=== PATIENT | male | born 1950 | race Two or more races ===

== ENCOUNTER 2022-08-02 20:21 | Inpatient (IN) | payer OTHER ==
[~2022-08-02] VITALS: Ht 165.1 cm; Wt 78.0 kg
--- NOTE | 2022-08-02 20:29 | NUR ---
[id number] UPON ARIVEAL PT LETHARGIC PT A/OX1-2; FAROESE SPEAKING. TOLERATING R/A WELL WITH NO RESP DISTRES. SAFETY MEASURES IN PLACE. SEIZURE PRECAUTIONS IN PLACE.
--- NOTE | 2022-08-02 20:37 | NUR ---
RAC #18G S/L BLOOD COLLECTED AND SENT TO LAB
--- NOTE | 2022-08-02 20:47 | NUR ---
COVID ANTIGEN SWAB COLLECTED AND SENT TO LAB
--- NOTE | 2022-08-02 20:55 | NUR ---
PT TAKEN TO CT VIA [facility]
--- NOTE | 2022-08-02 21:00 | NUR ---
URINE COLLECTED AND ROBERT TO LAB
--- NOTE | 2022-08-02 21:18 | NUR ---
PT RETURNED TO ER BED [address]
--- NOTE | 2022-08-02 21:22 | NUR ---
CALLED [facility] TO FAX PT'S MED HX; AWAITING FAX
[2022-08-02 21:24] LABS: BASOPHILS % (AUTO) 0.2 % (0.0-2.0); EOSINOPHILS % (AUTO) 0.1 % (0.0-6.0); HEMATOCRIT 39 % (39-51); HEMOGLOBIN 13.3 g/dL (13.5-17.5); LYMPHOCYTES # (AUTO) 1.7 K/uL (0.8-4.8); LYMPHOCYTES % (AUTO) 16.5 % (20.0-44.0); MEAN CORPUSCULAR HGB CONC 34 g/dl (31.0-36.0); MEAN CORPUSCULAR VOLUME 83 fL (80-96); MONOCYTES # (AUTO) 0.4 K/uL (0.1-1.30); MONOCYTES % (AUTO) 3.5 % (2.0-12.0); NEUTROPHILS # (AUTO) 8.2 K/uL (1.8-8.9); NEUTROPHILS % (AUTO) 79.7 % (43.0-81.0); PLATELET COUNT (AUTO) 294 K/uL (150-450); RED BLOOD CELL COUNT(AUTO) 4.75 MIL/uL (4.5-6.0); WHITE BLOOD COUNT (AUTO) 10.3 K/uL (4.3-11.0)
[2022-08-02 21:48] LABS: ALANINE AMINOTRANSFERASE 33 U/L (12-78); ALBUMIN 3.5 g/dL (3.4-5.0); ALKALINE PHOSPHATASE 92 U/L (46-116); ASPARTATE AMINOTRANSFERASE 24 U/L (15-37); BILIRUBIN,DIRECT 0.1 mg/dL (0.0-0.2); BILIRUBIN,TOTAL 0.4 mg/dL (0.2-1.0); CALCIUM, SERUM 8.6 mg/dL (8.5-10.1); CARBON DIOXIDE 21 mmol/L (21-32); CHLORIDE 93 mmol/L (98-107); CREATININE 1.6 mg/dL (0.6-1.3); GLUCOSE 138 mg/dL (74-106); POTASSIUM 4.4 mmol/L (3.5-5.1); SODIUM SERUM 129 mmol/L (136-145); TOTAL PROTEIN, SERUM 7.5 g/dL (6.4-8.2); UREA NITROGEN, BLOOD 17 mg/dL (7-18)
--- NOTE | 2022-08-02 22:00 | NUR ---
CALLED [facility] AND SPOKE WITH IRIS TO DOLORES AMRCOS MD. PT ARRIVED AT THE FACILITY WITHOUT ANY PAPERWORK OR INFORMATION FOR THE FACILITY WHERE HE IS STAYING AT.
--- NOTE | 2022-08-02 22:03 | NUR ---
DR. ECKERT ON THE PHONE WITH DR. GÓMEZ.
[2022-08-02] MEDS ORDERED: LEVETIRACETAM (500MG) 500 MG/5 ML VIAL IV ONE (22:17)
--- NOTE | 2022-08-02 22:24 | NUR ---
PT TAKEN TO CT VIA [facility]
[2022-08-02] MEDS ORDERED: IV NS 0.9% 1,000 ML BAG IV ONE (22:30)
[2022-08-02] MEDS ORDERED: LEVETIRACETAM (500MG) 1,000 MG in IV NS 0.9% 100 ML IV SCH (22:30)
[2022-08-02] MEDS ORDERED: LORAZEPAM INJ 2 MG/ML VIAL IV PRN (23:00)
[2022-08-02] MEDS ORDERED: ONDANSETRON HCL/PF 4 MG/2 ML VIAL IVP PRN (23:00)
[2022-08-02] MEDS ORDERED: ACETAMINOPHEN 325 MG TABLET PO PRN (23:00)
--- NOTE | 2022-08-02 23:57 | NUR ---
PT GOING TO 306-1
--- NOTE | 2022-08-03 00:29 | NUR ---
REPORT GIVEN TO BOZENA Chawla RN FOR KRYSTIAN
[2022-08-03 01:30] VITALS: BP 144/74
--- NOTE | 2022-08-03 01:32 | NUR ---
TRANSFERRED PT TO 3W 306-1 VIA ACLS PROTOCOL. VSS. ALL BELONGINGS WITH PT
[2022-08-03] MEDS: IV NS 0.9% 1,000 ML IV PRN ×2 (01:59→17:39)
--- NOTE | 2022-08-03 02:00 | NUR ---
PREDATOR CONTROL TRAPPER NOTE RECEIVED PATIENT FROM ER VIA GURNEY. PATIENT IS AWAKE, ALERT AND ORIENTED X 1-2; AMBULATORY. LUXEMBOURGISH SPEAKING. ON ROOM AIR; TOLERATING WELL. BREATHING EVENLY AND NONLABORED. NOT IN ANY FORM OF RESPIRATORY DISTRESS. DENIES ANY PAIN OR DISCOMFORT AT THIS TIME. ON TELEMETRY MONITORING WHICH READS SINUS RHYTHM HR-65 BPM. WITH IV ACCESS ON RIGHT ANTECUBITAL 20G; INTACT AND PATENT RUNNING WITH NS REGULATED @ 75 ML/HR; FLUSHES WELL. NO INFILTRATION NOTED. SKIN ASSESSMENT DONE; INTACT. ORIENTED TO STAFF, ROOM AND UNIT. ON SEIZURE PRECAUTIONS. SAFETY MEASURES IMPLEMENTED: CALL LIGHT AND TABLE WITHIN REACH, SIDE RAILS UP X 2, BED IN LOWEST LOCKED POSITION. WILL CONTINUE TO MONITOR.
[2022-08-03 04:00] VITALS: BP 156/82
[2022-08-03 06:17] LABS: BASOPHILS % (AUTO) 0.1 % (0.0-2.0); EOSINOPHILS % (AUTO) 0.8 % (0.0-6.0); HEMATOCRIT 41 % (39-51); HEMOGLOBIN 13.6 g/dL (13.5-17.5); LYMPHOCYTES # (AUTO) 2.8 K/uL (0.8-4.8); LYMPHOCYTES % (AUTO) 27.7 % (20.0-44.0); MEAN CORPUSCULAR HGB CONC 33 g/dl (31.0-36.0); MEAN CORPUSCULAR VOLUME 82 fL (80-96); MONOCYTES # (AUTO) 0.6 K/uL (0.1-1.30); MONOCYTES % (AUTO) 5.9 % (2.0-12.0); NEUTROPHILS # (AUTO) 6.6 K/uL (1.8-8.9); NEUTROPHILS % (AUTO) 65.5 % (43.0-81.0); PLATELET COUNT (AUTO) 249 K/uL (150-450); RED BLOOD CELL COUNT(AUTO) 4.99 MIL/uL (4.5-6.0); WHITE BLOOD COUNT (AUTO) 10.1 K/uL (4.3-11.0)
[2022-08-03 06:52] LABS: CALCIUM, SERUM 8.4 mg/dL (8.5-10.1); CREATININE 1.1 mg/dL (0.6-1.3); MAGNESIUM 2.2 mg/dL (1.8-2.4); PHOSPHORUS 2.9 mg/dL (2.5-4.9); POTASSIUM 3.6 mmol/L (3.5-5.1)
--- NOTE | 2022-08-03 07:10 | NUR ---
RN CLOSING NOTE PATIENT IN BED; AWAKE, A/O X 1-2. STABLE ON ROOM AIR. BREATHING EVENLY AND UNLABORED. IN NO ACUTE DISTRESS. NO S/S OF ANY PAIN OR DISCOMFORT AT THIS TIME. ON TELEMETRY MONITORING: SR HR-68 BPM. IV SITE ON RIGHT ANTECUBITAL 20G; INTACT AND PATENT RUNNING WITH NS REGULATED @ 75 ML/HR; FLUSHING WELL. NO INFILTRATION NOTED. ON SEIZURE PRECAUTIONS. SAFETY MEASURES MAINTAINED: CALL LIGHT AND TABLE WITHIN REACH, SIDE RAILS UP X 2, BED IN LOWEST LOCKED POSITION. ENDORSED TO MORNING SHIFT FOR KRYSTIAN.
--- NOTE | 2022-08-03 07:18 | NUR ---
MEDICAL RESEARCH SCIENTIST OPENING NOTE PATIENT IN BED, PATIENT IS ALERT AND ORIENTED X 2-3. PATIENT ON ROOM AIR WITH EVENLY AND UNLABORED BREATHING. NO ACUTE DISTRESS NOTED. NO COMPLAIN OF ANY PAIN OR DISCOMFORT AT THIS TIME. ON TELEMETRY MONITORING READING SR 81 BPM. WITH IV SITE ON RIGHT ANTECUBITAL 20G WITH NS RUNNING AT 75ML/HR. ON SEIZURE PRECAUTION, NONE NOTED LAST NIGHT. SAFETY MEASURES MAINTAINED: CALL LIGHT AND TABLE WITHIN REACH, SIDE RAILS UP X 2, BED IN LOWEST LOCKED POSITION. IN STABLE CONDITION. HEALTH TEACHING DONE REGARDING SEIZURE PRECAUTIONS. VERBALIZED UNDERSTANDING AND APPRECIATION.
[2022-08-03 08:00] VITALS: BP 144/80
--- NOTE | 2022-08-03 08:45 | NUR ---
TUBE CLEANING OPERATOR NOTE SEEN BY DR. BROOKE. IN STABLE CONDITION.
[2022-08-03] MEDS ORDERED: LEVETIRACETAM (500MG) 500 MG in IV NS 0.9% 100 ML IV SCH (09:00)
--- NOTE | 2022-08-03 09:38 | NUR ---
THROW OUT CLERK NOTE SEEN BY DR. MART. IN STABLE CONDITION.
[2022-08-03] MEDS: ASPIRIN EC 81 MG TABLET.DR PO SCH (09:41)
[2022-08-03] MEDS: LEVETIRACETAM (500MG) 1,000 MG in IV NS 0.9% 100 ML IV SCH ×2 (09:50→20:28)
[2022-08-03] MEDS ORDERED: DEXTROSE 50%-WATER 50 ML DISP.SYRIN IV PRN (10:30)
[2022-08-03] MEDS ORDERED: OLOP2.5D12 EACHEYE (11:56)
[2022-08-03] MEDS ORDERED: LEVE500T9 PO (11:56)
[2022-08-03] MEDS ORDERED: AMLO2.5T4 PO (11:56)
[2022-08-03] MEDS ORDERED: COLC0.6C3 PO (11:56)
[2022-08-03] MEDS ORDERED: ASPI-1420 PO (11:56)
[2022-08-03] MEDS ORDERED: GABA-532 PO (11:56)
[2022-08-03] MEDS ORDERED: CLOP75TA15 PO (11:56)
[2022-08-03] MEDS ORDERED: BRIM5DRO3 EACHEYE (11:56)
[2022-08-03] MEDS ORDERED: ERYT3.5O9 RIGHTEYE (11:56)
[2022-08-03] MEDS ORDERED: TAMS-12 PO (11:56)
[2022-08-03] MEDS ORDERED: POLY15DR40 EACHEYE (11:56)
[2022-08-03] MEDS ORDERED: ATOR40TA PO (11:56)
[2022-08-03] MEDS ORDERED: CARV25TA2 PO (11:56)
[2022-08-03] MEDS ORDERED: FINA5TAB11 PO (11:56)
[2022-08-03] MEDS ORDERED: ACET-868 PO (11:56)
[2022-08-03] MEDS ORDERED: NITR0.4T48 SL (11:56)
[2022-08-03] MEDS ORDERED: ISOS30TA86 PO (11:56)
[2022-08-03] MEDS ORDERED: ALLO300T2 PO (11:56)
[2022-08-03] MEDS ORDERED: LOSA100T31 PO (11:56)
[2022-08-03] MEDS ORDERED: CHOL100043 PO (11:56)
[2022-08-03] MEDS: BLOOD SUGAR DIAGNOSTIC 1 EACH STRIP IN SCH ×3 (12:00→21:29)
[2022-08-03 16:00] VITALS: BP 157/89
--- NOTE | 2022-08-03 16:06 | NUR ---
HOTEL RESERVATIONIST NOTE ENDORSED TO ELIESER ROSS FOR CONTINUITY OF CARE.
[2022-08-03] MEDS: INSULIN REGULAR, HUMAN 100 UNIT/ML 3 ML VIAL SQ PRN ×2 (17:10→21:28)
--- NOTE | 2022-08-03 18:44 | NUR ---
PULLMAN CAR REPAIRER CLOSING NOTE PATIENT IN BED, PATIENT IS ALERT AND ORIENTED X 2-3. PATIENT ON ROOM AIR WITH EVENLY AND UNLABORED BREATHING. NO ACUTE DISTRESS NOTED. NO COMPLAIN OF ANY PAIN OR DISCOMFORT AT THIS TIME. ON TELEMETRY MONITORING READING SR 81 BPM. WITH IV SITE ON RIGHT ANTECUBITAL 20G WITH NS RUNNING AT 75ML/HR. ON SEIZURE PRECAUTION, NONE NOTED ALL THROUGHOUT THE SHIFT. SAFETY MEASURES MAINTAINED: CALL LIGHT AND TABLE WITHIN REACH, SIDE RAILS UP X 2, BED IN LOWEST LOCKED POSITION. IN STABLE CONDITION. HEALTH TEACHING DONE REGARDING SEIZURE PRECAUTIONS. VERBALIZED UNDERSTANDING AND APPRECIATION. ENDORSED TO INCOMING NIGHT NURSE.
[2022-08-03 20:00] VITALS: BP 149/82
--- NOTE | 2022-08-03 20:00 | NUR ---
PRODUCT INTRODUCTION MANAGER OPENING NOTE RECEIVED PATIENT SITTING AWAKE IN BED, ALERT AND ORIENTED X 2-3. PATIENT ON ROOM AIR WITH EVENLY AND UNLABORED BREATHING. NO ACUTE DISTRESS NOTED. NO COMPLAIN OF ANY PAIN OR DISCOMFORT AT THIS TIME. ON TELEMETRY MONITORING READING SR 81 BPM. IV ACCESS ON RIGHT ANTECUBITAL 20G WITH NS RUNNING AT 75ML/HR. ON SEIZURE PRECAUTION. FOR NEUROLOGY CONSULT. SAFETY MEASURES MAINTAINED: CALL LIGHT AND TABLE WITHIN REACH, PADDED SIDE RAILS UP X 2, BED IN LOWEST LOCKED POSITION. IN STABLE CONDITION. WILL CONTINUE TO MONITOR THROUGHOUT THE SHIFT.
[2022-08-03] MEDS: ENOXAPARIN SODIUM 40 MG/0.4 ML DISP.SYRIN SQ SCH ×2 (20:19)
--- NOTE | 2022-08-03 21:30 | NUR ---
RN NOTE INFILTRATION NOTED AT IV SITE. RE-INSERTED AT RIGHT FA, #22. TOLERATED PROCEDURE WELL. IV PATENT AND INTACT, INFUSING NS @75ML/HR.
[2022-08-03] MEDS ORDERED: ATORVASTATIN 10 MG TABLET PO SCH (22:00)
--- NOTE | 2022-08-03 22:00 | NUR ---
RN NOTE PATIENT REFUSING TO BE ON IV FLUIDS. REINFORCED IMPORTANCE OF IV THERAPY. PATIENT INSISTED.
[2022-08-04] VITALS: BP 139/73
[2022-08-04 04:00] VITALS: BP 138/81
[2022-08-04 04:18] VITALS: BP 138/81
[2022-08-04] MEDS: BLOOD SUGAR DIAGNOSTIC 1 EACH STRIP IN SCH ×2 (06:16→11:57)
--- NOTE | 2022-08-04 06:34 | NUR ---
DETENTION WORKER CLOSING NOTE PATIENT AWAKE IN BED, ALERT AND ORIENTED X 2-3. PATIENT ON ROOM AIR WITH EVENLY AND UNLABORED BREATHING. NO ACUTE DISTRESS NOTED. NO COMPLAIN OF ANY PAIN OR DISCOMFORT AT THIS TIME. ON TELEMETRY MONITORING READING SR 72 BPM. IV ACCESS ON RIGHT ANTECUBITAL 20G WITH NS RUNNING AT 75ML/HR. ON SEIZURE PRECAUTION. FOR NEUROLOGY CONSULT. SAFETY MEASURES MAINTAINED: CALL LIGHT AND TABLE WITHIN REACH, PADDED SIDE RAILS UP X 2, BED IN LOWEST LOCKED POSITION. IN STABLE CONDITION. ENDORSED TO DAY SHIFT RN FOR KRYSTIAN.
--- NOTE | 2022-08-04 07:40 | NUR ---
SPECIAL NEEDS NANNY OPENING NOTE RECEIVED PATIENT IN BED WITH HOB ELEVATED, AWAKE, AOX3. PATIENT IS UGAND[place] SPEAKING ONLY. ON ROOM AIR WITH NO NOTED SOB OR ANY ACUTE DISTRESS. DENIES PAIN OR DISCOMFORT AT THIS TIME. TELEMETRY MONITORING READS SINUS RHYTHM AT 92 BPM. IV ACCESS ON RIGHT FOREARM GAUGE #22 WITH ORDER OF 75ML/HR BUT PT REFUSED SINCE LAST NIGHT DESPITE ENCOURAGEMENT. PATIENT WANTS TO GO HOME TODAY FOR AN IMMIGRATION APPOINTMENT HE SAID, WILL COORDINATE WITH MD AND CM. ON SEIZURE PRECAUTION WITH PADDED SIDE RAILS X 2. SAFETY MEASURES MAINTAINED: CALL LIGHT AND TRAY ABLE WITHIN REACH, SIDE RAILS UP X 2, BED IN LOWEST LOCKED POSITION. WILL CONTINUE TO MONITOR DURING MY SHIFT.
--- NOTE | 2022-08-04 07:52 | NUR ---
RT ABG attempted, patient was in so much pain and asked that I "don't do it anymore". HR 76 SPO2 97% on room air. No SOB or respiratory distress noted. payroll lead Natan foreman.
[2022-08-04] MEDS: ASPIRIN EC 81 MG TABLET.DR PO SCH (09:01)
[2022-08-04] MEDS: LEVETIRACETAM (500MG) 1,000 MG in IV NS 0.9% 100 ML IV SCH (09:10)
--- NOTE | 2022-08-04 09:10 | NUR ---
RN NOTES DR BURNETT AT BEDSIDE, PATIENT FOR DC TODAY. WILL COORDINATE WITH CM. PT AGREED TO IV MED, GIVEN.
[2022-08-04] MEDS ORDERED: LEVE1000 PO (09:34)
[2022-08-04] MEDS: INSULIN REGULAR, HUMAN 100 UNIT/ML 3 ML VIAL SQ PRN (11:57)
--- NOTE | 2022-08-04 14:10 | NUR ---
DEPENDENCY CASE MANAGER DISCHARGE NOTES PT DISCHARGED TO A BOARD AND CARE FACILITY IN STABLE CONDITION. PT IS AOX4, NAMIBIAN SPEAKING ONLY, ABLE TO MAKE NEEDS KNOWN, ON ROOM AIR, SATURATING WELL WITH NO SOB NOR ANY APPARENT DISTRESS. LAST TELE READING WAS SINUS RHYTHM AT 92 BPM. VITAL SIGNS TAKEN. STABLE AND RECORDED. PT'S SKIN IS INTACT. PATIENT DENIES PAIN NOR DISCOMFORT THIS TIME, PT DIDNT HAVE ANY SEIZURE EPISODES. ALL BELONGINGS ACCOUNTED FOR. DISCHARGE INSTRUCTIONS GIVEN TO THE PATIENT, TRANSLATED IN NAMIBIAN BY REMOTE SENSING PROGRAM MANAGER. REMINDED THE PATIENT REGARDING FOLLOW UP VISIT WITH DR CASAS IN 6 WEEKS. IV ACCESS ON LFA G#22, REMOVED WITH NO ACTIVE BLEEDING, DRY PRESSURE DRESSING APPLIED AT SITE. PT LEFT THE UNIT AT 1400 VIA GURNEY ACCOMPANIED BY 3 SOFTWARE ENGINEERING SPECIALIST. MD AND CHARGE NURSE AWARE OF DISCHARGE.
[2022-08-04] MEDS ORDERED: LEVETIRACETAM (250 MG) 250 MG TABLET PO SCH (21:00)
== END 2022-08-04 14:00 | DRG 100 ==
LOC: ER 20:49 → TELE 23:59
PROVIDERS: ADMIT Nurse Practitioner Acute Care; ATTEND Internal Medicine
DX: G40.409 Other generalized epilepsy and epileptic syndromes, not intractable, without status epilepticus (principal); G93.41 Metabolic encephalopathy; N17.0 Acute kidney failure with tubular necrosis; E87.1 Hypo-osmolality and hyponatremia; Z20.822 Contact with and (suspected) exposure to COVID-19; D64.9 Anemia, unspecified; Z91.14 Patient's other noncompliance with medication regimen; E86.0 Dehydration; E11.9 Type 2 diabetes mellitus without complications; J43.9 Emphysema, unspecified
CPT/HCPCS: 36415; 70450-TC; 71045-TC; 71250-TC; 80048-TC; 80061-TC; 80076-TC; 82962-TC; 83735-TC; 84100-TC; 85025-TC; 87081-TC; C9803; G0378; J1650; J1815; J1953; J7030